=== PATIENT | male | born 1980 | race Caucasian/White ===

== ENCOUNTER 2022-08-03 16:25 | Emergency (ER) | payer SELFPAY ==
[2022-08-03 16:55] VITALS: BP 120/69; PULSE 110; RESP 20; TEMP 36.8; O2SAT 97; BMI 39.1
--- NOTE | 2022-08-03 19:42 | ED_ITS ---
HPI - General Adult General Time Seen by Provider: 19:43 Date Seen: 08/03/22 Chief complaint: Unspecified Complaint, Adult Stated complaint: RIPPED RECTUM Time Seen by Provider: 08/03/22 19:19 Source: patient and RN notes reviewed Mode of arrival: ambulatory Limitations: no limitations History of Present Illness HPI narrative: Patient is coming in with significant rectal pain. He is having severe pain with defecation and pain in between defecation. He got placed on a specific diet by his doctor, resulting in severe constipation. Of few days ago, about 3 he had a large stool that was hard and sharp. Initially had a little blood. Since then he has had severe pain. He has been trying the take as many laxatives as he can to make the stool more liquidy. It is severely painful. He has been trying Tylenol and ibuprofen. He states he can not take the pain. He has got a little sweaty from having the pain but no fevers. No significant rectal bleeding. Did eventually look on [place] prescribing website. He did have some narcotics and September of 2021, had back surgery then. He has no chronic narcotic prescriptions. Has most recently gotten 2 prescriptions for phentermine. Related Data Home Medications Medication Instructions Recorded Confirmed losartan 100 tab 08/03/22 mg-hydrochlorothiazide 12.5 mg tablet Allergies Allergy/AdvReac Type Severity Reaction Status Date / Time doxycycline Allergy Verified 08/03/22 16:59 Review of Systems Status of ROS: Reports: 6 or more systems reviewed and unremarkable except as noted in History and below PFSH PFSH Social History Smoking Status: Never smoker Do you use any of these nicotine containing products: Smokeless Tobacco Second hand tobacco smoke exposure: No How often do you have a drink containing alcohol: never How often do you have six or more drinks on one occasion: Never AUDIT-C Alcohol total score: 0 Non-prescribed substance use: denies use Exam Const: Vital Signs, click to edit/add: Vital Signs - 24 hr 08/03/22 16:55 Temperature 98.3 F Pulse Rate [Right Pulse Oximeter] 110 H Respiratory Rate 20 Blood Pressure [Ri ght Upper Arm] 120/69 Pulse Oximetry 97 Oxygen Delivery Me thod Room Air Patient is a 42-year-old male lying on the bed in exam room 8, lying on his right side with his knees flexed. Looks uncomfortable. Documenting provider has reviewed patient's vital signs: yes Common normals: no apparent distress, oriented x3, no limitations, healthy appearing, alert and well nourished General appearance: cooperative and well kempt HENMT: Common normals: normocephalic, head/scalp atraumatic and hearing grossly normal bilaterally Head and scalp: normocephalic and atraumatic Eye: Common normals: PERRL, EOMs intact bilaterally, conjunctivae normal and no scleral icterus Conjunctiva: conjunctiva(e) normal Pupil: PERRL Resp: Common normals: normal respiratory effort, no retractions, no use of accessory muscles and clear to auscultation bilaterally Auscultation: clear to auscultation bilaterally Cardio: Common normals: regular rate, regular rhythm, S1 normal heart sound, S2 normal heart sound, no gallops, no clicks and no murmurs Rate: regular rate Rhythm: regular rhythm Heart sounds: S1 normal and S2 normal GI: Common normals: Normal to inspection, nondistended, normoactive bowel sounds present, soft to palpation, non-tender, no hepatosplenomegaly and no masses Palpation: soft and no hepatosplenomegaly Other: Anus appears normal. Patient is adamantly refusing digital rectal exam. When I discussed it with a meal MOLST becomes tearful. Thus, did not perform this. In any event, no external evidence of any hemorrhoids, no active bleeding. Neuro: Common normals: oriented x3 Sensorium/orientation: alert Psych: Appearance: well ket Course Course Hospital Course: Did bring in our general surgeons anal fissure handout that I had received from Dr. Champagne. Did try to talk the patient into doing some lidocaine jelly here but he did not want to. It is after hours and he will not likely get this tonight. Have talked him into taking home at a [employer] which he will attempt to apply topically at home himself. Vital Signs Vital signs: Initial Vital Signs Temperature 98.3 F 08/03/22 16:55 Temperature Source Temporal Artery Scan 08/03/22 16:55 Pulse Rate 110 H 08/03/22 16:55 Respiratory Rate 20 08/03/22 16:55 Blood Pressure 120/69 08/03/22 16:55 Blood Pressure Mean 86 08/03/22 16:55 Blood Pressure Position Sitting 08/03/22 16:55 Pulse Oximetry 97 08/03/22 16:55 Oxygen Delivery Method 08/03/22 16:55 Vital Signs Temperature 98.3 F 08/03/22 16:55 Pulse Rate 110 H 08/03/22 16:55 Respiratory Rate 20 08/03/22 16:55 Blood Pressure 120/69 08/03/22 16:55 Pulse Oximetry 97 08/03/22 16:55 Oxygen Delivery Method 08/03/22 16:55 Temperature 98.3 F 08/03/22 16:55 Pulse Rate 96 08/03/22 20:14 Respiratory Rate 20 08/03/22 16:55 Blood Pressure 120/69 08/03/22 16:55 Pulse Oximetry 95 08/03/22 20:14 Oxygen Delivery Method 08/03/22 20:14 Critical Care Time Critical Care Time Critical Care Time: No Discharge Plan Discharge Clinical Impression: Acute anal fissure Condition: Stable Instructions: Anal Fissure (ED) Additional Instructions: Follow the handout that I provided you from our surgeons. If you have ongoing issues, do recommend follow up in clinic with 1 of our general surgeons, phone number to clinic is [phone]. Try the topical lidocaine jelly and then the compounded diltiazem prescription that I have provided. Need to take the prescription for the diltiazem compound to [facility] as on the handout. We will provide a few tablets of oxycodone from [facility]. Note that narcotics can make you more constipated which can make this problem worse. You need to work on bowel management as outlined on the handout. Tylenol and ibuprofen baseline for pain control. Activity Level: Activity as Tolerated Prescriptions: No Action losartan-hydrochlorothiazide 100-12.5 mg tablet Label Comments: TAKE 1 TABLET BY MOUTH EVERY DAY Follow Up/Referrals: Mariana Swain MD [Primary Care Provider] - Stand Alone Forms: [employer] Info Instructions
[2022-08-03] MEDS: lidocaine HCL 2 % JELLY (TOP) STERILE 6 ML TOPICAL (20:12)
[2022-08-03 20:14] VITALS: PULSE 96; O2SAT 95
== END 2022-08-03 20:32 | disposition home or self-care (01) ==
PROVIDERS: Emergency Provider Family Medicine; PCP Family Medicine
DX: K60.0 Acute anal fissure (principal)
CPT/HCPCS: 99283; 99284

== ENCOUNTER 2024-06-19 14:26 | Emergency (ER) | payer MEDICAID, SELFPAY ==
[2024-06-19 14:33] VITALS: BP 105/69; PULSE 105; RESP 20; TEMP 37.2; O2SAT 96; BMI 40.4
--- NOTE | 2024-06-19 14:38 | CRLHL7_ITS ---
For Patients: As a result of the Century Cures Act, medical imaging exams and procedure reports are released immediately into your electronic medical record. You may view this report before your referring provider. If you have questions, please contact your health care provider. INDICATION: Shortness of breath and chest pain COMPARISON: February 02, 2022 chest radiograph TECHNIQUE: Single frontal radiographic view(s) of the chest. FINDINGS: No substantial pleural effusion. No definite focal pulmonary consolidation. Normal heart size. No acute osseous findings. Partially imaged postsurgical changes at the left glenoid. IMPRESSION: No acute thoracic findings. Dictated by Atilio Palomo MD @ 06/19/2024 4:35:20 PM (Electronically Signed)
[2024-06-19] MEDS: ASPIRIN 81 MG TAB.CHEW 324 MG PO (14:42)
--- NOTE | 2024-06-19 14:44 | ED.GENADULT ---
HPI - General Adult General Date Seen: 06/19/24 Chief complaint: Chest Pain Stated complaint: chest pain, light headed, severe arm pain Time Seen by Provider: 06/19/24 14:28 Source: patient Mode of arrival: ambulatory Limitations: no limitations History of Present Illness HPI narrative: Patient is a 43 year old male with an underlying history of diabetes and hypertension, overweight, who presents for evaluation of left chest and arm pain which he started noticing at around 3:00 a.m.. He describes it as sharp, a stabbing sensation in his chest associated with a burning sensation and sometimes his left arm feeling like it is going to sleep. This has been happening periodically since 3:00 a.m., though symptoms last only a few seconds at a time. He has not noted any clear exacerbating or alleviating factors, he did note that when he climbs the stairs at his home he felt like his heart was racing and he had more pain, but he is unclear whether that happened every time he climbed the stairs or just the once. He feels short of breath. He has not had fever cough, lower extremity swelling or pain. No history of similar pain. No history of known coronary artery disease. He does not smoke, he does chew tobacco. Denies significant alcohol use or other substance use. No significant family history. Related Data Home Medications ?Medication ?Instructions ?Recorded ?Confirmed losartan 100 1 tab PO DAILY 08/03/22 06/19/24 mg-hydrochlorothiazide 12.5 mg tablet dextroamphetamine-amphetamine ER 1 cap PO DAILY 06/19/24 06/19/24 20 mg 24hr capsule,extend release metformin 500 mg tablet 500 mg PO 3XD 06/19/24 06/19/24 semaglutide 0.25 mg or 0.5 mg (2 1 mg subcut .weekly 06/19/24 06/19/24 mg/3 mL) subcutaneous pen injector (Ozempic) Allergies Allergy/AdvReac Type Severity Reaction Status Date / Time ibuprofen Allergy Unknown Verified 06/19/24 15:33 ketorolac Allergy Unknown Verified 06/19/24 15:33 doxycycline Allergy Verified 06/19/24 14:36 Review of Systems Status of ROS: Reports: 10 or more systems reviewed and unremarkable except as noted in History and below PFSH PFSH Social History Smoking Status: Never smoker Do you use any of these nicotine containing products: Smokeless Tobacco Second hand tobacco smoke exposure: No How often do you have a drink containing alcohol: never How often do you have six or more drinks on one occasion: Never AUDIT-C Alcohol total score: 0 Non-prescribed substance use: marijuana (any form) Non-prescribed substance use details: medical marijuana for sleep apnea Exam Narrative: Exam Narrative: Vital signs as noted above. In general, an alert, nontoxic male. Breathing easily. Head: Normocephalic, atraumatic. Eyes: Pupils are equal reactive. Extraocular movements are full. Conjunctivae are normal. ENT: Mucous membranes are moist. Throat is normal. Neck: Supple without lymphadenopathy. Heart: Regular rate and rhythm. No murmur or rub. Lungs: Clear bilaterally. No increased work of breathing, crackles or wheezes. Abdomen: Soft and nontender. No organomegaly. Extremities: Well perfused. No edema. No calf tenderness. Pulses intact. Neurologic: Patient is alert and oriented to person and place. Speech is fluent. Face is symmetric. Moves all extremities equally. Affect: Normal. Skin: Warm and dry. Well perfused. Const: Vital Signs, click to edit/add: Vital Signs - 24 hr 06/19/24 14:33 Temperature 99 F Pulse Rate [Pulse Oximeter] 105 H Respiratory Rate 20 Blood Pressure [Ri ght Upper Arm] 105/69 Pulse Oximetry 96 Oxygen Delivery Me thod Room Air Documenting provider has reviewed patient's vital signs: yes Course Course ED Course: Patient had 1 brief stab of pain during the time of our conversation. He had an EKG on arrival which by my review shows a sinus rhythm, ventricular rate of 97 beats per minute, he was mildly tachycardic on arrival with a pulse of 105. There are no acute ST segment changes, T-waves are unremarkable. He does have some risk factors for coronary artery disease, perhaps some description of an exertional component to this but other features are less suggestive of coronary artery disease as an explanation for her symptoms. Will obtain labs, portable chest x-ray, I do think a D-dimer is reasonable given his symptoms and tachycardia. In terms of his chest pain, evaluation here is reassuring. He has had symptoms for about 12 hours on a troponin is undetectable. EKG is likewise unremarkable, and symptoms are overall atypical for cardiac pain. I think that a single troponin is adequate to rule out acute coronary syndrome in the circumstances. His D-dimer is normal. White blood cell count minimally elevated at 11.6 with an essentially normal diff. metabolic panel is normal, blood sugars 134, CRP is 0.6. Point of care troponin 0. While here, patient complained of his chronic back pain. He apparently is on chronic opioids for this although he did not mention those on his initial medication list. He further said that he is out of his narcotics. I therefore reviewed his records a little more thoroughly. We have seen him multiple times in the past for similar symptoms in terms of the chest pain. He gets regular oxycodone according to prescription monitoring program. He filled a prescription for 80 10 mg tablets on June 09, he tells me that he ran out of those yesterday. He says that he was just doing what his prescribing provider told him to do which was to experiment with what combination of pills made them last longest, so he has been doubling up he says. He noted that 80 tablets should ?only last him 22 days, when I pointed out that it had only been 9 days and he was out of them are ready, he said that he had had friends over and maybe they had taken some of them. He does follow with a pain clinic apparently. There is a message on [employer] from him to his prescribing provider on June 16, at which time he references a drug test he must have failed as it contained marijuana, opioids, and also cocaine. I discussed his overuse of oxycodone with him, I offered to provide support in terms of addiction medicine if he felt that would be helpful, but he says he does not have any problems whatsoever with overuse or addiction. I did decline to provide any pain medications while here. He lists an allergy to ibuprofen, our previous notes suggest that he has previously tolerated Toradol and so I ordered that but he declined that saying he is also allergic to that. I have asked him to follow with his pain clinic in terms of the back pain. In terms of the chest pain, he should be seen by primary care next week. Symptoms are atypical but he has several risk factors for heart disease and a stress test may still be a reasonable next step. Return any time for severe persistent symptoms or other worsening. Vital Signs Vital signs: Initial Vital Signs Temperature 99 F 06/19/24 14:33 Temperature Source Temporal Artery Scan 06/19/24 14:33 Pulse Rate 105 H 06/19/24 14:33 Respiratory Rate 20 06/19/24 14:33 Blood Pressure 105/69 06/19/24 14:33 Blood Pressure Mean 81 06/19/24 14:33 Blood Pressure Position Semi-Fowlers 06/19/24 14:33 Pulse Oximetry 96 06/19/24 14:33 Oxygen Delivery Method Room Air 06/19/24 14:33 Vital Signs Temperature 99 F 06/19/24 14:33 Pulse Rate 105 H 06/19/24 14:33 Respiratory Rate 20 06/19/24 14:33 Blood Pressure 105/69 06/19/24 14:33 Pulse Oximetry 96 06/19/24 14:33 Oxygen Delivery Method Room Air 06/19/24 14:33 Temperature 99 F 06/19/24 14:33 Pulse Rate 105 H 06/19/24 14:33 Respiratory Rate 20 06/19/24 14:33 Blood Pressure 105/69 06/19/24 14:33 Pulse Oximetry 96 06/19/24 14:33 Oxygen Delivery Method Room Air 06/19/24 14:33 Medications Administered Medications: Discontinued Medications Generic Name Dose Route Start Last Admin Trade Name Freq PRN Reason Stop Dose Admin Aspirin 324 mg 06/19/24 14:38 06/19/24 14:42 Aspirin 81 Mg Tab.Chew PO 06/19/24 14:39 324 mg ONCE ONE Administration Medical Decision Making Lab Data Labs: Lab Results 06/19/24 Range/Units 14:50 WBC 11.61 H (4.50-11.00) K/uL RBC 5.47 (4.30-5.90) m/uL Hgb 15.6 (13.5-17.5) gm/dL Hct 47.9 (37.0-53.0) % MCV 88 (80-100) fL MCH 29 (26-34) pg MCHC 33 (32-36) gm/dL RDW Coeff of Sohail 13.0 (11.5-15.5) % Plt Count 269 (140-440) K/uL Neut % (Auto) 73.7 H (42.0-72.0) % Lymph % (Auto) 16.8 L (20-44) % [place] % (Auto) 4.5 (0.0-11.0) % Eos % (Auto) 3.9 (0.0-7.0) % Baso % (Auto) 0.9 (0.0-3.0) % Neut # (Auto) 8.60 H (1.7-7.0) K/uL Lymph # (Auto) 2.00 (0.90-2.90) K/uL [place] # (Auto) 0.50 (0.00-0.90) K/UL Eos # (Auto) 0.50 (0.00-0.50) K/uL Baso # (Auto) 0.10 (0.00-0.30) K/uL Abs Immat Gran (auto) 0.00 (0.00-0.30) K/uL Imm/Tot Granulo (auto) 0.2 % D-Dimer Quant (PE/DVT) 0.31 (0.00-0.50) ug/ml Sodium 138 (135-149) mmol/L Potassium 4.0 (3.6-5.1) mmol/L Chloride 103 (96-114) mmol/L Carbon Dioxide 25 (20-32) mmol/L Anion Gap 10 (7-15) mEq/L BUN 9 (5-24) mg/dL Creatinine 0.7 (0.5-1.5) mg/dL Estimated Creat Clear 147.91 Estimated GFR 119 ml/min Glucose 134 H (60-115) mg/dL Calcium 9.3 (8.4-10.6) mg/dL C-Reactive Protein 0.6 (0.5-1.0) mg/dL POC Troponin I 0.00 L (0.01-0.04) ng/ml Discharge Plan Discharge Clinical Impression: Chest pain Patient Disposition: Home, Self-Care Condition: Stable Instructions: Chest Pain (DC) Additional Instructions: I would recommend follow-up with a primary care doctor in the next week for recheck regarding her chest pain and to determine whether a stress test would be reasonable. If at any time you have severe persistent pain, vomiting, fainting, or other worsening, return to the emergency department. Please follow-up with your pain clinic regarding your back pain. Prescriptions: No Action losartan-hydrochlorothiazide 100-12.5 mg tablet 1 tab PO DAILY Patient Comments: TAKE 1 TABLET BY MOUTH EVERY DAY metformin 500 mg tablet 500 mg PO 3XD dextroamphetamine-amphetamine 20 mg capsule,extended release 24hr 1 cap PO DAILY Ozempic 0.25 mg or 0.5 mg (2 mg/3 mL) pen injector 1 mg subcut .weekly Follow Up/Referrals: Mariana Swain MD [Primary Care Provider] - Stand Alone Forms: [facility] Info Instructions
[2024-06-19 14:50] VITALS: O2SAT 97
[2024-06-19 15:02] VITALS: BP 133/85; PULSE 95; RESP 14; O2SAT 95
[2024-06-19 15:24] LABS: Chloride* 103 mmol/L (96-114); Sodium* 138 mmol/L (135-149)
[2024-06-19 15:27] LABS: Anion Gap 10 mEq/L (7-15); Blood Urea Nitrogen* 9 mg/dL (5-24); Carbon Dioxide* 25 mmol/L (20-32); Creatinine* 0.7 mg/dL (0.5-1.5); Est. Creatinine Clearance* 147.91; Estimated Glomerular Filt Rate 119 ml/min
[2024-06-19 15:28] LABS: Calcium* 9.3 mg/dL (8.4-10.6); Glucose* 134 mg/dL (60-115)
[2024-06-19 15:30] LABS: C Reactive Protein* 0.6 mg/dL (0.5-1.0)
[2024-06-19 15:31] LABS: D Dimer Quantitative* 0.31 ug/ml (0.00-0.50)
[2024-06-19 15:32] VITALS: BP 138/93; PULSE 96; RESP 16; O2SAT 95
[2024-06-19 15:33] LABS: Basophils Percent Auto 0.9 % (0.0-3.0); Eosinophils Percent Auto 3.9 % (0.0-7.0); Hematocrit 47.9 % (37.0-53.0); Hemoglobin* 15.6 gm/dL (13.5-17.5); Immature Granulocytes Pct Auto 0.2 %; Lymphocytes Percent Auto 16.8 % (20-44); Mean Corpuscular HGB Conc 33 gm/dL (32-36); Mean Corpuscular Hemoglobin 29 pg (26-34); Mean Corpuscular Volume 88 fL (80-100); Monocytes Percent Auto 4.5 % (0.0-11.0); Neutrophils Percent Auto 73.7 % (42.0-72.0); Platelet Count* 269 K/uL (140-440); Red Blood Count 5.47 m/uL (4.30-5.90); White Blood Count* 11.61 K/uL (4.50-11.00)
[2024-06-19 15:34] LABS: Slide Review Reflex No
[2024-06-19 15:50] VITALS: BP 105/69; PULSE 105; RESP 20; TEMP 37.2
== END 2024-06-19 15:55 | disposition home or self-care (01) ==
PROVIDERS: Emergency Provider Emergency Medicine; PCP Family Medicine
DX: R07.9 Chest pain, unspecified (principal)
CPT/HCPCS: 36415; 71045; 80048; 84484; 85025; 85379; 86140; 93005; 94761; 96374; 99284; 99285; A9270